=== PATIENT | male | born 1975 | race Asian ===

== ENCOUNTER 2016-10-05 22:14 | Emergency (ER) | payer OTHER ==
[2016-10-05] MEDS ORDERED: DIAZEPAM 5 MG TABLET ONE (22:59)
[2016-10-05] MEDS ORDERED: HYDROCODONE/ACETAMINOPHEN 5/325MG TABLET ONE (22:59)
--- NOTE | 2016-10-06 07:57 | RAD ---
LUMBAR SPINE ROUTINE 2 3 VWS COMPARISON: MRI lumbar spine 03/05/2015. Lumbar spine 3 views 04/27/2004 HISTORY: Low back pain after slipping and slightly down for wooden stairs. Initial encounter. FINDINGS: Views: Lumbar spine AP and lateral. AP L5-S1 spot. Vertebral alignment: Normal. Vertebral bodies: Minimal osteophytes. No change. Intervertebral discs: Normal. Pedicles: No change. Short pedicles throughout the lumbar spine which could contribute to spinal stenosis. Facet joints and posterior arches: Normal. Sacroiliac joints: Normal. Soft tissues: Surgical clips in the right upper quadrant. IMPRESSION: 1. No compression fracture or transverse process fracture. 2. No change compared to the MRI of the lumbar spine, with minimal spondylosis and congenitally short pedicles.
== END 2016-10-05 23:45 | disposition home or self-care (01) ==
LOC: ED 22:14
DX: S30.0XXA Contusion of lower back and pelvis, initial encounter (principal); W10.9XXA Fall (on) (from) unspecified stairs and steps, initial encounter; Y92.9 Unspecified place or not applicable
CPT/HCPCS: 72100; 99283 ×2; A9270 ×2

== ENCOUNTER 2016-11-08 13:26 | Emergency (ER) | payer OTHER ==
[2016-11-08 14:33] LABS: ABSOLUTE NEUTROPHIL COUNT 5.4 K/mm3 (1.8-7.7); BASO # 0.1 K/mm3 (0.0-0.2); BASO % 0.7 % (0.2-1.0); EOS # 0.3 (0.0-0.5); HEMATOCRIT 43.7 % (32.0-52.0); HEMOGLOBIN 14.4 gm/l (14.0-18.0); IMM NEUT # 0.1 K/mm3 (0-0.2); IMM NEUT% 0.6 % (0-1); LYMPH # 2.1 (1.0-4.8); LYMPH % 25.1 % (15-45); MEAN CELL VOLUME 89.7 fl (80.0-94.0); MEAN CORPUSCULAR HEMOGLOBIN 29.6 pg (27.0-31.0); MEAN PLATELET VOLUME 9.9 fl (7.4-10.4); MONO # 0.5 (0.0-0.8); MONO % 5.8 % (4-12); NEUT % 64.8 % (43-75); PLATELET COUNT 220 K/mm3 (130-400); RED CELL DISTRIBUTION WIDTH 12.2 % (11.5-14.5)
[2016-11-08 14:44] LABS: ALB/GLOB RATIO 1.4 (>1.0); ALBUMIN 4.3 gm/dL (3.5-5.7); CALCIUM 9.2 mg/dL (8.6-10.3)
[2016-11-08 14:46] LABS: TROPONIN I < 0.01 ng/ml (0.0-0.06)
[2016-11-08 14:51] LABS: CKMB ISOENZYME 3.6 ng/ml (0.6-6.3)
--- NOTE | 2016-11-08 15:44 | RAD ---
11/08/2016 3:36 PM CHEST - 2 VIEWS History: Back pain radiating to front of chest. Comparison: 04/27/2004 Findings: Two views of the chest are obtained. The lungs are clear with out effusion or pneumothorax. The cardiomediastinal silhouette is unremarkable.. The osseous structures are intact.. IMPRESSION: No acute intrathoracic process.
== END 2016-11-08 16:00 | disposition home or self-care (01) ==
LOC: ED 13:26
DX: R07.89 Other chest pain (principal); M54.6 Pain in thoracic spine; K21.9 Gastro-esophageal reflux disease without esophagitis